=== PATIENT | female | born 1975 ===

== ENCOUNTER 2017-05-03 08:26 | Emergency (ER) | payer OTHER ==
[2017-05-03 08:31] VITALS: BP 144/74; PULSE 87; RESP 18; TEMP 97.8; O2SAT 98
--- NOTE | 2017-05-03 10:12 | ED PDOC ---
Lower Extremity Pain/Injury Time Seen by Provider: 05/03/17 09:04 Chief Complaint (Nursing): Lower Extremity Problem/Injury Chief Complaint (Provider): Lower Extremity problem/injury History Per: Patient History/Exam Limitations: no limitations Onset/Duration Of Symptoms: Days (x4) Current Symptoms Are (Timing): Still Present Additional Complaint(s): Lianne Katz is a 42 year old female presenting to the ED for an evaluation of a 4 day history of left knee pain. The patient states this began as she twisted her left knee but did not fall while walking down the stairs. Since then she has had ongoing left knee pain and left back pain radiating down her left leg. She states it worsens as she walks, but theres not much pain when lying still. The patient has not taken any medications for the pain. PMD: None provided Past Medical History Reviewed: Historical Data, Nursing Documentation, Vital Signs Vital Signs: Last Vital Signs Temp 97.8 F 05/03/17 08:30 Pulse 87 05/03/17 08:30 Resp 18 05/03/17 08:30 BP 144/74 05/03/17 08:30 Pulse Ox 98 05/03/17 08:34 - Medical History PMH: No Chronic Diseases - Surgical History Surgical History: No Surg Hx - Family History Family History: States: Unknown Family Hx - Social History Current smoker - smoking cessation education provided: No Ex-Smoker (has not smoked in the last 12 months): No Alcohol: None Drugs: Denies - Home Medications Home Medications: Ambulatory Orders Medication Instructions Recorded Cyclobenzaprine [Cyclobenzaprine 10 mg PO TID #15 tab 05/03/17 HCl] Naproxen 500 mg PO BID #20 tab 05/03/17 - Allergies Allergies/Adverse Reactions: Allergies Allergy/AdvReac Type Severity Reaction Status Date / Time No Known Allergies Allergy Verified 05/03/17 08:34 Review of Systems ROS Statement: Except As Marked, All Systems Reviewed And Found Negative Musculoskeletal: Positive for: Back Pain (left back pain radiating down left leg ), Leg Pain (left knee pain ) Physical Exam - Reviewed Nursing Documentation Reviewed: Yes Vital Signs Reviewed: Yes - Physical Exam Appears: Positive for: Well, Non-toxic, No Acute Distress Head Exam: Positive for: ATRAUMATIC, NORMAL INSPECTION, NORMOCEPHALIC Skin: Positive for: Normal Color Cardiovascular/Chest: Positive for: Regular Rate, Rhythm Respiratory: Positive for: Normal Breath Sounds. Negative for: Respiratory Distress Back: Positive for: Normal Inspection, Other (tenderness to palpation to left upper buttocks ). Negative for: Decreased ROM Extremity: Positive for: Normal ROM (full rom of left knee with pain ), Capillary Refill (<2 seconds ), Swelling (left knee appears mildly swollen). Negative for: Tenderness (to left knee ), Pedal Edema, Calf Tenderness, Deformity Neurologic/Psych: Positive for: Alert, Oriented - ECG O2 Sat by Pulse Oximetry: 98 (RA) Pulse Ox Interpretation: Normal - Progress Re-evaluation Time: 10:30 Condition: Re-examined, Improved Medical Decision Making Medical Decision Makin:04 Impression: left knee pain and back pain Differential diagnosis includes but is not limited to knee sprain versus knee arthritis as well as consider sciatica and lumbar radiculopathy Plan: * [RAD] LT knee 3 Views * Flexeril 10 mg PO * Toradol 30 mg IM * Reevaluation Knee Results FINDINGS: BONES: Normal. No fracture. No suspicious lytic or blastic change. JOINTS: Normal. No osteoarthritis. JOINT EFFUSION: None. OTHER FINDINGS: None. IMPRESSION: Normal radiographs of the left knee. Consider persist or worsen follow-up MRI is available. Scribe Attestation: Documented by Nia Hampton, acting as a scribe for Jayde Trimble MD. Provider Scribe Attestation: All medical record entries made by the Scribe were at my direction and personally dictated by me. I have reviewed the chart and agree that the record accurately reflects my personal performance of the history, physical exam, medical decision making, and the department course for this patient. I have also personally directed, reviewed, and agree with the discharge instructions and disposition. Disposition - Clinical Impression Clinical Impression: Sprain of left knee, Back pain - Patient ED Disposition Is Patient to be Admitted: No Doctor Will See Patient In The: Office Counseled Patient/Family Regarding: Studies Performed, Diagnosis, Need For Followup - Disposition Referrals: Armando Ponce III, MD [Staff Provider] - [facility] [Outside] Disposition: Routine/Home Disposition Time: 12:00 Condition: GOOD Additional Instructions: Take medications as instructed. Follow up with your PCP in 2-3 days. Prescriptions: Cyclobenzaprine [Cyclobenzaprine HCl] 10 mg PO TID #15 tab Naproxen 500 mg PO BID #20 tab Instructions: Knee Sprain (ED), Back Pain (ED) Forms: [employer] (Amharic) Print Language: AZERBAIJANI
--- NOTE | 2017-05-03 11:50 | RAD ---
PROCEDURE: Left Knee Radiographs. HISTORY: Pain. COMPARISON: None. FINDINGS: BONES: Normal. No fracture. No suspicious lytic or blastic change. JOINTS: Normal. No osteoarthritis. JOINT EFFUSION: None. OTHER FINDINGS: None. IMPRESSION: Normal radiographs of the left knee. Consider persist or worsen follow-up MRI is available.
== END 2017-05-03 12:23 | disposition home or self-care (01) ==
LOC: H.ER 08:26
DX: S83.92XA Sprain of unspecified site of left knee, initial encounter (principal); Z87.891 Personal history of nicotine dependence; X50.1XXA Overexertion from prolonged static or awkward postures, initial encounter; Y93.9 Activity, unspecified